=== PATIENT | female | born 1960 | race Caucasian/White ===

== ENCOUNTER 2020-06-17 07:33 | Outpatient (CLI) | payer BC, OTHER ==
[2020-06-18 15:27] LABS: SARS-CoV-2 MS2 Positive; SARS-CoV-2 N Gene Negative; SARS-CoV-2 S Gene Negative; SARS-CoV-2 by NAA Not Detected (NotDetected); SARS-CoV-2 orf1ab Negative
== END 2020-06-17 07:34 | disposition home or self-care (01) ==
LOC: LABBT 07:33
PROVIDERS: ATTEND Surgery
DX: K63.89 Other specified diseases of intestine (principal); Z20.828 Contact with and (suspected) exposure to other viral communicable diseases
CPT/HCPCS: 87635; U0003

== ENCOUNTER 2020-06-17 09:15 | Inpatient (IN) | payer BC, OTHER ==
[2020-06-17 12:27] VITALS: BMI 19.2
[2020-06-20] MEDS ORDERED: Fentanyl 100 MCG/2 ML VIAL ONE ×2 (06:29→06:49)
[2020-06-20] MEDS ORDERED: Bupivacaine/Epinephrine 0.25% 30 ML VIAL ONE (06:42)
[2020-06-20] MEDS ORDERED: Midazolam HCl 2 mg/2 ml Vial ONE (06:49)
[2020-06-20] MEDS ORDERED: cefOXitin Sodium/Dextrose 2 GM/50 ML BAG ONE (07:05)
[2020-06-20] MEDS ORDERED: Scopolamine 1.5 mg/72 hour Patch ONE (07:26)
[2020-06-20] MEDS ORDERED: Famotidine/PF 20 mg/2ml Vial ONE (07:27)
[2020-06-20] MEDS ORDERED: Promethazine HCl 25 MG/ML VIAL IM PRN ×2 (08:33→10:27)
[2020-06-20] MEDS ORDERED: Promethazine HCl 25 MG/ML VIAL SLOW IVP PRN (08:33)
[2020-06-20] MEDS ORDERED: HYDROmorphone 2 MG/ML VIAL SLOW IVP PRN (08:33)
[2020-06-20] MEDS ORDERED: Fentanyl 100 MCG/2 ML VIAL SLOW IVP PRN ×2 (10:27)
[2020-06-20] MEDS ORDERED: hydrALAZINE 20 MG/ML VIAL SLOW IVP PRN (10:27)
[2020-06-20] MEDS ORDERED: Ondansetron PF 4 MG/2 ML Vial ONE (10:35)
[2020-06-20] MEDS ORDERED: Dexamethasone 20 MG/5 ML VIAL ONE (10:35)
[2020-06-20] MEDS ORDERED: Glycopyrrolate 0.2 MG/ML 5 ML SYRINGE ONE (10:35)
[2020-06-20] MEDS ORDERED: Lidocaine 1% PF 5 ML VIAL ONE (10:35)
[2020-06-20] MEDS ORDERED: Ketorolac Tromethamine 30 MG/ML VIAL ONE (10:35)
[2020-06-20] MEDS ORDERED: Rocuronium Bromide 10 MG/ML (10ML VIAL) ONE (10:35)
[2020-06-20] MEDS ORDERED: Bupivacaine HCl 0.5%/Epinephrine 1:200,000/PF 30 ml Vial ONE (10:35)
[2020-06-20] MEDS ORDERED: PROPOFOL 200 MG/20 ML VIAL ONE (10:35)
[2020-06-20 10:54] LABS: Hemoglobin A1c 5.1 % (4.0-6.0)
[2020-06-20] MEDS: traMADol HCl 50 MG TAB PO PRN (13:01)
[2020-06-20] MEDS: Ondansetron PF 4 MG/2 ML Vial IVP PRN ×2 (13:01→18:15)
[2020-06-20] MEDS: Sodium Chloride 0.9% 1,000 ML IV SCH (13:04)
--- NOTE | 2020-06-20 14:57 | OP ---
DATE OF PROCEDURE: 06/20/2020 PREOPERATIVE DIAGNOSIS: Ascending colon mass. POSTOPERATIVE DIAGNOSIS: Ascending colon mass. PROCEDURE PERFORMED: Laparoscopic right colectomy. ANESTHESIA: General. ESTIMATED BLOOD LOSS: 50 mL. COMPLICATIONS: None. SPECIMENS: Right colon opened on back table to reveal the mass. TECHNIQUE: The patient was taken to the operating room and laid supine on the operating room table. After general anesthetic was obtained, a Gan was placed. The abdomen was prepped and draped in a sterile fashion. Left subcostal 5-mm Optiview trocar placed in usual fashion without injury. High-flow pneumoperitoneum was obtained. Left lateral and suprapubic 5-mm ports were placed as well as one at the umbilicus. The patient was placed in the Trendelenburg position, right side up slightly, and the right colon was mobilized along the white line of Toldt. The ureter was found and excluded from the dissection. Medial to lateral rotation was then dissected. The base of the ileocolic artery was skeletonized. Ileocolic vessel was taken near its base using the LigaSure. The right colon was then mobilized posteriorly. The duodenum was not injured and excluded from the dissection. Dissection was taken down around the hepatic flexure. Incision was made around and above the umbilicus. The hand-assist port was placed, and the right colon was able to be brought up into the wound. VICKI 75 stapler was fired across the terminal ileum. A reload was fired across the proximal transverse colon, and the specimen was opened on the back table to reveal the mass to be in place. The small bowel was brought up against the transverse colon in an isoperistaltic fashion. Enterotomy was made on the end of the small bowel and more distally on the colon. An isoperistaltic riye-pn-shyo anastomosis was performed. Common enterotomy was closed using a running Vicryl suture in 2 layers. The mesenteric defect was closed using silk suture. There was no bleeding in the abdomen. The abdomen was irrigated. All instrument counts, needle counts, lap counts were correct. The fascia at the umbilicus was closed using PDS from the top and the bottom and tied in the middle. Subcutaneous tissues were irrigated using Pulsavac irrigation and closed using 3-0 Vicryl, 4-0 Monocryl, and Dermabond. The other laparoscopic sites were closed using 4-0 Monocryl and Dermabond. The patient was sent to Recovery in stable condition. All instrument counts, needle counts, and lap counts were correct. Job ID: [id number]
[2020-06-20] MEDS ORDERED: cefOXitin Sodium 1 GM in Sodium Chloride 0.9% 100 ML IVPB SCH (15:00)
[2020-06-20] MEDS: cefOXitin Sodium/Dextrose,Iso 1 GM in Premix Bag 1 BAG IVPB SCH ×2 (15:09→22:24)
[2020-06-20] MEDS: HYDROcodone/Acetaminophen 7.5/325 mg Tablet PO PRN (18:15)
[2020-06-20] MEDS: Famotidine/PF 20 mg/2ml Vial SLOW IVP SCH (20:36)
[2020-06-20] MEDS: Enoxaparin Sodium 40 MG/0.4 ML SYRINGE SC SCH (20:36)
[2020-06-20] MEDS: Famotidine 20 MG TAB PO SCH (20:43)
[2020-06-21] MEDS: Sodium Chloride 0.9% 1,000 ML IV SCH (02:13)
[2020-06-21] MEDS: HYDROcodone/Acetaminophen 7.5/325 mg Tablet PO PRN ×2 (04:29→18:59)
[2020-06-21 05:28] LABS: #Lymphocytes 1.2 thou/uL (1.20-3.40); #Monocytes 0.4 thou/uL (0.11-0.59); #Neutrophils 3.8 thou/uL (1.40-6.50); %Basophils 0.4 % (0.0-1.0); %Eosinophils 0.4 % (0.0-10.0); %Lymphocytes 21.8 % (21.0-51.0); %Monocytes 7.2 % (0.0-10.0); %Neutrophils 70.3 % (42.0-75.0); Hemoglobin 11.2 g/dL (12.0-16.0); Mean Corpuscular HGB CONC 33.7 g/dL (32.0-36.0); Mean Corpuscular Hemoglobin 33.2 pg (27.0-31.0); Mean Corpuscular Volume 98.5 fL (78.0-98.0); Mean Platelet Volume 6.9 fL (7.4-10.4); Platelet Count 161 thou/uL (130-400); RBC Distribution Width 11.2 % (11.5-14.5); Red Blood Cell (RBC) Count 3.36 mill/uL (4.20-5.40); White Blood Cell (WBC) Count 5.4 thou/uL (4.8-10.8)
[2020-06-21 05:47] LABS: Anion Gap 9 mmol/L (10-20); BUN (Urea Nitrogen) 7 mg/dL (9.8-20.1); Calc. Creatinine Clearance 64 mL/min (70-130); Calcium 8.2 mg/dL (7.8-10.44); Carbon Dioxide 24 mmol/L (22-29); Chloride 108 mmol/L (98-107); Estimated GFR-MDRD 65; Glucose 88 mg/dL (70-105); Potassium 4.1 mmol/L (3.5-5.1); Sodium 137 mmol/L (136-145)
--- NOTE | 2020-06-21 07:09 | PDOC.GSPN ---
Surgery Progress Note: Subj - Subjective Patient reports: no new complaints, pain well controlled Narrative: Mrs. Gallo is a 59 year old female who is 1 day s/p laprascopic right hemicolectomy due to an ascending colon mass. She reports mild to moderate abdominal soreness that is worse when she takes a deep breath, but this is tolerable. She denies any nausea, vomiting, shortness of breath, dysuria. She had her indwelling catheter removed this morning. She has been able to ambulate without difficulty. She is tolerating a liquid diet well. Surgery Progress Note: Obj - Vital signs Vital signs: Vital Signs - Most Recent Temp Pulse Resp BP Pulse Ox 98.8 F 70 18 119/75 96 06/21/20 04:14 06/21/20 04:14 06/21/20 04:14 06/21/20 04:14 06/21/20 04:14 - Physical Exam General: no distress, well developed, well nourished Cardiovascular: regular rate and rhythm Respiratory: clear to auscultation Abdomen: soft, positive bowel sounds, appropriately tender Wound: healing well (mild bruising around the midline incision) Surgery Progress Note: Results - Labs Result Diagrams: 06/21/20 05:13 06/21/20 05:13 Lab results: Laboratory Results - last 12 hr 06/21/20 06/21/20 05:13 05:13 WBC 5.4 RBC 3.36 L Hgb 11.2 L Hct 33.1 L MCV 98.5 H MCH 33.2 H MCHC 33.7 RDW 11.2 L Plt Count 161 MPV 6.9 L Neutrophils % 70.3 Lymphocytes % 21.8 Monocytes % 7.2 Eosinophils % 0.4 Basophils % 0.4 Neutrophils # 3.8 Lymphocytes # 1.2 Monocytes # 0.4 Eosinophils # 0.0 Basophils # 0.0 Sodium 137 Potassium 4.1 Chloride 108 H Carbon Dioxide 24 Anion Gap 9 L BUN 7 L Creatinine 0.90 Estimated GFR (MDRD) 65 Glucose 88 Calcium 8.2 Surgery Progress Note: A/P - Plan Plan: s/p laprascopic right hemicolectomy- Patient tolerating diet and ambulation well. Will progress to a full liquid diet today. She is encouraged to continue walking today. Continue on pain regime and antiemetics PRN. Addendum - Physician - Physician Attestation Date/Time: 06/21/20 4157 I personally performed or re-performed the physical examination and medical decision making. I have verified all student documentation or findings, including history, physical exam and/or medical decision making. Doing well. Advance to full liquids, HL IV
[2020-06-21] MEDS: Famotidine 20 MG TAB PO SCH ×2 (08:29→20:36)
[2020-06-21] MEDS: Lisinopril 10 MG TAB PO SCH (08:29)
[2020-06-21] MEDS: Famotidine/PF 20 mg/2ml Vial SLOW IVP SCH ×2 (08:29→22:24)
[2020-06-21] MEDS ORDERED: Simethicone Chewable 80 MG TAB PO PRN (13:48)
[2020-06-21] MEDS: Ondansetron PF 4 MG/2 ML Vial IVP PRN ×2 (14:14→20:37)
[2020-06-21] MEDS: traMADol HCl 50 MG TAB PO PRN ×2 (14:15→20:37)
[2020-06-21] MEDS: Enoxaparin Sodium 40 MG/0.4 ML SYRINGE SC SCH (20:36)
[2020-06-22] MEDS: HYDROcodone/Acetaminophen 7.5/325 mg Tablet PO PRN (06:20)
[2020-06-22] MEDS: Lisinopril 10 MG TAB PO SCH (08:59)
[2020-06-22] MEDS: Famotidine/PF 20 mg/2ml Vial SLOW IVP SCH (08:59)
[2020-06-22] MEDS: Famotidine 20 MG TAB PO SCH (08:59)
[2020-06-22 11:37] VITALS: BP 136/84; TEMP 99
[2020-06-22] MEDS: Ondansetron PF 4 MG/2 ML Vial IVP PRN (13:07)
--- NOTE | 2020-06-23 11:50 | DIS ---
DATE OF ADMISSION: 06/20/2020 DATE OF DISCHARGE: 06/22/2020 ADMIT DIAGNOSIS: Right colon mass. DISCHARGE DIAGNOSIS: Right colon mass. PROCEDURES: Laparoscopic right colectomy by Dr. Castaneda without complication. CONDITION ON DISCHARGE: Improved. STAFF: Joel Castaneda MD HOSPITAL COURSE: On postop day #2, the patient is doing well. She is tolerating a full liquid diet. She has had a bowel movement. She has mild nausea. Prescriptions for [place] and Zofran sent to [facility] [place] [facility] [address]. She is discharged today. She will follow up with me in 2 weeks. She will do a soup diet for a few more days, then casserole diet for five days, then diet as tolerated and return and see me in 2 weeks. Pathology pending at the time of this dictation. Job ID: [id number]
--- NOTE | 2020-06-25 04:25 | PQF ---
CLINICAL DOCUMENTATION CLARIFICATION FORM: Dear : Joel Castaneda Date / Time: 06/1320 Please exercise your independent, professional judgment in responding to the clarification form. 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 Thank You. To be completed by CDI/Coding staff for physician review: Present Clinical Indicators - Signs / Symptoms / Labs Results and Location in Medical Record [X] Large Sessile Tubulovilous Adenoma Pathology report Dr Avila 06/20 [X] No definitive high grade dysplasia or malignancy was present Pathology report Dr Avila 06/20 [X] Ascending colon mass Operative report 06/20 Dr Castaneda [X] BP 134/77, Pulse 82, Resp 22, Temp 97.8 Vital signs 06/20 Present Risk Factors Results and Location in Medical Record [X] Ascending colon mass Operative report 06/20 Dr Castaneda [X] Family History of cancer Scanned H&P page 1 Present Treatments Results and Location in Medical Record [X] Laparoscopic Right Colectomy Operative report 06/20 Dr Castaneda [X] IV Cefoxitin 2 gm NOV 20 [X] IVF NS 1L NOV 20 CDS/Grader Operator Signature: Rosemary Garciaamandeep Mackay Phone #: [phone] Date/Time: 06/25/2020 0428 This is a permanent part of the Medical Record [facility]
== END 2020-06-22 13:34 | disposition home or self-care (01) | DRG 331 ==
LOC: SURG A 06-20 06:10 → EDSTATUS 06-20 09:15 → SJJU 06-20 10:19
PROVIDERS: ADMIT Surgery; ATTEND Surgery
PROC: 0DBF4ZZ Excision of Right Large Intestine, Percutaneous Endoscopic Approach (ICD-10-PCS; principal; 2020-06-20)
DX: K63.89 Other specified diseases of intestine (principal); J45.909 Unspecified asthma, uncomplicated; F41.9 Anxiety disorder, unspecified; Z79.899 Other long term (current) drug therapy; Z79.51 Long term (current) use of inhaled steroids; Z20.828 Contact with and (suspected) exposure to other viral communicable diseases
CPT/HCPCS: 36415; 36416; 74177; 80048; 83036; 85025; 87635; 88309; J0694; J1100; J1650; J1885; J2250; J2405; J2550; J2704; J3010; Q9967; S0028; U0003

== ENCOUNTER 2020-06-17 13:59 | Outpatient (CLI) | payer BC ==
[~2020-06-17 13:59] MED LIST: Iopamidol-370 76% 500 ML 1 ML ONE
--- NOTE | 2020-06-17 14:59 | CT ---
CT ABDOMEN AND PELVIS WITH IV CONTRAST 06/17/2020 CLINICAL INFORMATION: History of colon adenocarcinoma. Mass found on recent colonoscopy. COMPARISON: None. Technique: Multiple contiguous axial CT images are obtained through the abdomen and pelvis with IV contrast. Cor onal reformatted images are provided. FINDINGS: Lower Chest: No discrete pulmonary nodule or mass is seen either lung base. No pleural effusion is se en. Vessels: Abdominal aorta is normal in caliber. Abdomen: Portal vein:Patent Gallbladder: Within normal limits for CT imaging. Liver: Hypodense lesion in the dome of the liver measuring 1.5 cm with a smaller hypodense lesion see n in the posterior right hepatic lobe measuring 1.2 cm each with irregular peripheral enhancement, and findings are likely attributable to hemangiomas. A smaller subcentimeter too small to characteriz e hypodense lesion is seen in the lateral segment left hepatic lobe. Spleen: within normal limits. Pancreas: within normal limits. Adrenals: within normal limits. Kidneys: within normal limits. Bowel: Evidence of colonic diverticulosis. There is suggestion of masslike density in the region of t he ascending colon adjacent to the region of the ileocecal valve. This may represent site of patient's known malignancy. This measures approximately 3 cm. Correlation with findings on colonoscop y is recommended. Loops of small bowel are normal in caliber. Appendix: The appendix is visualized and normal in caliber. Peritoneum: No ascites or free air; no fluid collection. Mesentery and Retroperitoneum: No enlarged mesenteric or retroperitoneal lymph nodes. Abdominal Wall: Tiny fat-containing umbilical hernia. Pelvis: Reproductive Organs: No pelvic masses. Bladder: Incompletely distended. Bones: Degenerative changes are seen in the lumbar spine greatest at the L3-4 level. No suspicious ly tic or sclerotic osseous lesions are identified. Minimal osteoarthritis is seen involving each hip. IMPRESSION: 1. Hypodense lesions within the dome of liver and posterior right hepatic lobe most likely related to hemangiomas. There is an additional too small to characterize subcentimeter hypodense lesion lateral segment left hepatic lobe. An MRI abdomen versus three-phase CT scan liver following the gabby ngioma protocol is recommended for further evaluation. 2. Low-density mass in the ascending colon which may correspond to patient's known colonic neoplasm. Correlation with findings on colonoscopy are recommended. 3. No evidence of lymphadenopathy.
== END 2020-06-17 14:00 | disposition home or self-care (01) ==
LOC: BICCT 13:59
PROVIDERS: ATTEND Surgery
DX: C18.9 Malignant neoplasm of colon, unspecified (principal); K76.9 Liver disease, unspecified; K63.89 Other specified diseases of intestine
CPT/HCPCS: 74177; Q9967

== ENCOUNTER 2021-05-26 08:46 | Outpatient (CLI) | payer BC ==
[2021-05-26 09:35] LABS: #Eosinphils 0.1 10x3/uL (0.0-0.5); #Monocytes 0.3 10x3/uL (0.0-1.1); #Neutrophils 2.1 10x3/uL (1.5-8.4); %Basophils 0.8 % (0.0-2.0); %Eosinophils 2.5 % (0.0-6.0); %Lymphocytes 30.9 % (18.0-47.0); %Neutrophils 58.5 % (40.0-75.0); Hemoglobin 12.6 g/dL (12.0-15.5); Mean Corpuscular HGB CONC 33.5 g/dL (32.0-36.0); Mean Corpuscular Volume 98.4 fl (81.6-98.3); Mean Platelet Volume 9.8 fl (7.4-10.4); Platelet Count 182 10x3/uL (150-450); RBC Distribution Width 11.4 % (11.5-14.5); Red Blood Cell (RBC) Count 3.82 10x6/uL (3.90-5.03); White Blood Cell (WBC) Count 3.6 10x3/uL (3.5-10.5)
[2021-05-26 10:13] LABS: Anion Gap 13 mmol/L (10-20); BUN (Urea Nitrogen) 19 mg/dL (9.8-20.1); Calc. Creatinine Clearance 0 mL/min (70-130); Calcium 9.4 mg/dL (7.8-10.44); Carbon Dioxide 24 mmol/L (22-29); Chloride 107 mmol/L (98-107); Glucose 86 mg/dL (70-105); Potassium 3.9 mmol/L (3.5-5.1); Sodium 140 mmol/L (136-145)
[2021-05-26 11:44] LABS: SARS-CoV-2 NAA Rapid Test Not Detected (NotDetected)
== END 2021-05-26 08:47 | disposition home or self-care (01) ==
LOC: LABBT 08:46
PROVIDERS: ATTEND Ophthalmology Retina Specialist
DX: Z01.818 Encounter for other preprocedural examination (principal); K43.2 Incisional hernia without obstruction or gangrene; N64.52 Nipple discharge; Z20.822 Contact with and (suspected) exposure to COVID-19
CPT/HCPCS: 80048; 85025; 93005; 93010; U0002

== ENCOUNTER 2021-05-27 09:12 | Day surgery (SDC) | payer BC ==
[2021-05-26 14:01] VITALS: BMI 19.9
[2021-05-27] MEDS ORDERED: Fentanyl 100 MCG/2 ML VIAL ONE ×4 (09:59→13:48)
[2021-05-27] MEDS ORDERED: HYDROmorphone 0.5 MG/0.5 ML SYRINGE ONE ×3 (09:59→13:48)
[2021-05-27] MEDS ORDERED: Midazolam HCl 2 mg/2 ml Vial ONE ×2 (09:59→10:15)
[2021-05-27] MEDS ORDERED: Bupivacaine 0.25% HCL 30 ML VIAL ONE (10:01)
[2021-05-27] MEDS ORDERED: Lidocaine 1% w/Epinephrine 1:100K 30 ML VIAL ONE (10:01)
[2021-05-27] MEDS ORDERED: Scopolamine 1.5 mg/72 hour Patch ONE (10:15)
[2021-05-27] MEDS ORDERED: PHENYLEPHRINE-NS 100 MCG/ML 10 ML SYRINGE ONE (10:30)
[2021-05-27] MEDS ORDERED: Dexamethasone 20 MG/5 ML VIAL ONE (10:30)
[2021-05-27] MEDS ORDERED: Glycopyrrolate 0.2 MG/ML 5 ML SYRINGE ONE (10:30)
[2021-05-27] MEDS ORDERED: Lidocaine 1% PF 5 ML VIAL ONE (10:30)
[2021-05-27] MEDS ORDERED: PROPOFOL 200 MG/20 ML VIAL ONE (10:30)
[2021-05-27] MEDS ORDERED: Rocuronium Bromide 10 MG/ML (10ML VIAL) ONE (10:30)
[2021-05-27] MEDS ORDERED: Ondansetron PF 4 MG/2 ML Vial ONE (10:30)
[2021-05-27] MEDS ORDERED: ePHEDrine 50 MG/ML VIAL ONE (10:30)
[2021-05-27] MEDS ORDERED: Meperidine HCl/PF 25 MG/ML VIAL ONE (13:25)
[2021-05-27] MEDS ORDERED: Ketorolac Tromethamine 30 MG/ML VIAL ONE (13:26)
[2021-05-27] MEDS ORDERED: HYDROcodone/Acetaminophen 5/325 mg Tablet ONE (15:34)
== END 2021-05-27 16:50 | disposition home or self-care (01) ==
LOC: SDC 09:12
PROVIDERS: ATTEND Surgery
PROC: 0WUF4JZ Supplement Abdominal Wall with Synthetic Substitute, Percutaneous Endoscopic Approach (ICD-10-PCS; principal; 2021-05-27)
PROC: 0HBU0ZZ Excision of Left Breast, Open Approach (ICD-10-PCS; principal; 2021-05-27)
DX: K43.2 Incisional hernia without obstruction or gangrene (principal); N60.12 Diffuse cystic mastopathy of left breast; N64.52 Nipple discharge; J45.909 Unspecified asthma, uncomplicated; I10 Essential (primary) hypertension; Z90.49 Acquired absence of other specified parts of digestive tract
CPT/HCPCS: 88305; C1781; J0690; J1100; J1170; J1885; J2175; J2250; J2405; J2704; J3010; J3490; S0020